=== PATIENT | female | born 1985 | race American Indian/Alaskan Native ===

== ENCOUNTER 2018-09-22 14:59 | Emergency (ER) | payer MEDICAID, OTHER ==
--- NOTE | 2018-09-22 17:41 | Emergency Department Report ---
Blank Doc - Documentation Documentation: 33 y o female presents at 28 weeks for Rhogam injection denies vag bleed, has good fm ED rhogam ordered ACC
[2018-09-22 21:06] VITALS: BP 114/80
--- NOTE | 2018-09-22 21:55 | Emergency Department Report ---
ED General Adult HPI - General Chief complaint: Medical Clearance Stated complaint: RH SHOT Time Seen by Provider: 09/22/18 17:35 Source: patient Mode of arrival: Ambulatory Limitations: No Limitations - History of Present Illness Initial comments: 33 y/o female , 8 weeks presents emergency department for Imogam injection. She reports no pain or vaginal bleeding Severity scale (0 -10): 0 Improves with: none Worsens with: none Associated Symptoms: denies other symptoms Treatments Prior to Arrival: none - Related Data Allergies Allergy/AdvReac Type Severity Reaction Status Date / Time No Known Allergies Allergy Unverified 09/22/18 15:02 ED Review of Systems ROS: Stated complaint: RH SHOT Other details as noted in HPI Constitutional: denies: chills, fever Eyes: denies: eye pain, eye discharge, vision change ENT: denies: ear pain, throat pain Respiratory: denies: cough, shortness of breath, wheezing Cardiovascular: denies: chest pain, palpitations Endocrine: no symptoms reported Gastrointestinal: denies: abdominal pain, nausea, diarrhea Genitourinary: denies: urgency, dysuria, discharge Musculoskeletal: denies: back pain, joint swelling, arthralgia Skin: denies: rash, lesions Neurological: denies: headache, weakness, paresthesias Psychiatric: denies: anxiety, depression Hematological/Lymphatic: denies: easy bleeding, easy bruising ED Past Medical Hx - Past Medical History Previous Medical History?: No - Surgical History Past Surgical History?: No - Social History Smoking Status: Never Smoker Substance Use Type: None ED Physical Exam - General Limitations: No Limitations General appearance: alert, in no apparent distress - Head Head exam: Present: atraumatic - Eye Eye exam: Present: normal appearance - ENT ENT exam: Present: normal exam - Extremities Exam Extremities exam: Present: normal inspection, full ROM - Neurological Exam Neurological exam: Present: alert, oriented X3, normal gait - Psychiatric Psychiatric exam: Present: normal affect, normal mood ED Course Vital Signs 09/22/18 09/22/18 17:36 21:05 Temperature 98.2 F 98.2 F Pulse Rate 108 H 100 H Respiratory 16 16 Rate Blood Pressure 115/81 114/80 O2 Sat by Pulse 99 99 Oximetry Critical care attestation.: If time is entered above; I have spent that time in minutes in the direct care of this critically ill patient, excluding procedure time. ED Disposition Clinical Impression: Need for rhogam due to Rh negative mother Disposition: DC-01 TO HOME OR SELFCARE Is pt being admited?: No Does the pt Need Aspirin: No Condition: Stable Instructions: Rho(D) Immune Globulin (Injection) Referrals: ANNELISE LOPEZ MD [Primary Care Provider] - 3-5 Days
== END 2018-09-22 21:40 | disposition home or self-care (01) ==
LOC: ED 14:59
DX: O26.891 Other specified pregnancy related conditions, first trimester (principal)
CPT/HCPCS: 85461; 86850; 86900; 86901; 96372; 99281; J2790; 36430

== ENCOUNTER 2018-12-02 13:49 | Outpatient (CLI) | payer MEDICAID, OTHER ==
[2018-12-02 14:26] LABS: Hematocrit 41.1 % (30.3-42.9); Hemoglobin 13.7 gm/dl (10.1-14.3); Mean Corpuscular HGB Conc 33 % (30-34); Mean Corpuscular Volume 83 fl (79-97); Platelet Count 232 K/mm3 (140-440); Red Blood Count 4.97 M/mm3 (3.65-5.03); Red Cell Distribution Width 15.1 % (13.2-15.2)
[2018-12-02 14:40] LABS: Bilirubin,Urine NEG (Negative); Blood,Urine SM (Negative); Color,Urine Amber (Yellow); Mucus,Urine 3+ /HPF
[2018-12-02 14:46] LABS: Alanine Aminotransferase 11 units/L (7-56)
--- NOTE | 2018-12-02 15:07 | Ultrasound Report ---
ULTRASOUND OB LIMITED History: Position, TAVON Technique: Transabdominal ultrasound with Doppler interrogation. Gestation: Single Position: Cephalic Amniotic Fluid: Normal TAVON = 11.6 cm Heart Rate: 152 BPM
[2018-12-02 15:17] VITALS: BP 126/75
== END 2018-12-02 15:42 | disposition home or self-care (01) ==
LOC: TRG 13:49
PROVIDERS: ATTEND Obstetrics & Gynecology
DX: O47.1 False labor at or after 37 completed weeks of gestation (principal); O13.3 Gestational [pregnancy-induced] hypertension without significant proteinuria, third trimester; Z3A.38 38 weeks gestation of pregnancy
CPT/HCPCS: 36415; 59025; 76815; 81001; 82565; 83615; 84450; 84460; 84550; 85027

== ENCOUNTER 2018-12-05 14:36 | Outpatient (CLI) | payer MEDICAID, OTHER ==
[2018-12-05 15:26] LABS: Creatinine 24 Hour,Urine 1.5 (0.8-2.8); Creatinine,Urine 93.4 mg/dL (0.1-20.0)
== END 2018-12-05 17:51 | disposition home or self-care (01) ==
LOC: TRG 14:36
PROVIDERS: ATTEND Obstetrics & Gynecology
DX: O47.1 False labor at or after 37 completed weeks of gestation (principal); O13.3 Gestational [pregnancy-induced] hypertension without significant proteinuria, third trimester; Z3A.39 39 weeks gestation of pregnancy
CPT/HCPCS: 82570; 84156

== ENCOUNTER 2018-12-06 02:47 | Inpatient (IN) | payer OTHER, MEDICAID ==
[2018-12-06] MEDS ORDERED: MINERAL OIL PO PRN (03:52)
[2018-12-06] MEDS ORDERED: XYLOCAINE 2% INFILTRATI ONE (03:52)
[2018-12-06] MEDS ORDERED: BRETHINE SUB-Q PRN (03:52)
[2018-12-06] MEDS ORDERED: BRETHINE IVP PRN (03:52)
[2018-12-06] MEDS ORDERED: SUBLIMAZE IV PRN (03:52)
[2018-12-06] MEDS ORDERED: STADOL IV PRN (03:52)
[2018-12-06] MEDS ORDERED: PITOCin/NS 20 UNIT/1000ML DRIP 20 UNITS/1,000 ML BAG IV SCH (04:00)
[2018-12-06] MEDS ORDERED: LACTATED RINGERS 1,000 ML IV SCH (04:00)
[2018-12-06 04:26] LABS: Hematocrit 40.8 % (30.3-42.9); Hemoglobin 13.4 gm/dl (10.1-14.3); Mean Corpuscular HGB Conc 33 % (30-34); Mean Corpuscular Volume 83 fl (79-97); Platelet Count 209 K/mm3 (140-440); Red Blood Count 4.91 M/mm3 (3.65-5.03); Red Cell Distribution Width 15.1 % (13.2-15.2)
--- NOTE | 2018-12-06 06:50 | History and Physical Report ---
History of Present Illness Date of examination: 12/06/18 Date of admission: 12/06/18 06:27 Chief complaint: Leaking fluid, contractions and spotting History of present illness: 33yo G 3 P 1 1 0 2 @ 39 weeks 1 day here with c/o leaking fluid since 2:00am, contractions & spotting. She reports positive movements. SROM confirmed in triage. She is a [facility] patient who initiated care at 10 weeks gestation. Her course was complicated by h/o PTB, enlarged thyroid with subliclinal hyperthyroidism (repeat TSH/T4 normal), previous baby with spina bifida, +trich(was treated; neg STEVENSON), h/o depression, vit D deficiency (was supplemented) and +antibody screen Anti D (s/p RhoGam injection). Her care was co-managed with [facility]. LABS: O neg, Antibody Screen pos, Pap smear normal, RI, VDRL NR, HBsAg neg, HIV neg , MSAFP neg, Diabetes Screen 134, CT/NG/Trich neg, GBS neg. Past History Past Medical History: other (vitamin deficiency) Past Surgical History: no surgical history [employer] History: trichomonas (neg STEVENSON) Family/Genetic History: hypertension Social history: single, lives with family, full code. denies: smoking, alcohol abuse, prescription drug abuse, IV drug use - Obstetrical History Expected Date of Delivery: 12/12/18 Actual Gestation: 39 Week(s) 1 Day(s) : 3 Para: 2 Hx # Term Pregnancies: 1 Number of Pregnancies: 1 Spontaneous Abortions: 0 Induced : 0 Number of Living Children: 2 #1 Infant Gender: Male year: 2,007 (11/25/2006) Birthweight: 2.722 kg (6 lbs) Method of Delivery: Vaginal Gestational age at delivery: 36 Complications: none #2 Gender: Male year: 2,009 (10/27/2008) Birthweight: 3.118 kg Method of Delivery: Vaginal Gestational age at delivery: 37 Complications: none Medications and Allergies Allergies Allergy/AdvReac Type Severity Reaction Status Date / Time No Known Allergies Allergy Verified 12/06/18 03:32 Active Meds: Active Medications Butorphanol Tartrate (Stadol) 2 mg IV Q2H PRN PRN Reason: Pain , Severe (7-10) Ephedrine Sulfate (Ephedrine Sulfate) 10 mg IV Q2M PRN PRN Reason: Hypotension Fentanyl (Sublimaze) 100 mcg IV Q2H PRN PRN Reason: Labor Pain Oxytocin/Sodium Chloride (Pitocin/Ns 20 Unit/1000ml Drip) 20 units in 1,000 mls @ 125 mls/hr IV DIRECT ERICA Oxytocin/Sodium Chloride (Pitocin/Ns 30 Unit/500ml) 30 units in 500 mls @ 2 mls/hr IV TITR ERICA; Protocol Lactated Ringer's (Lactated Ringers) 1,000 mls @ 125 mls/hr IV DIRECT ERICA Mineral Oil (Mineral Oil) 30 ml PO QHS PRN PRN Reason: Constipation Terbutaline Sulfate (Brethine) 0.25 mg SUB-Q ONCE PRN PRN Reason: Hyperstimulation/Hypertonicity Terbutaline Sulfate (Brethine) 0.25 mg IVP ONCE PRN PRN Reason: Hyperstimulation/Hypertonicity Review of Systems All systems: negative - Vital Signs Vital signs: Vital Signs Pulse BP 125 H 126/88 12/06/18 03:00 12/06/18 03:00 Temp Pulse Resp BP Pulse Ox 98.4 F 88 18 130/91 86 12/06/18 03:19 12/06/18 06:43 12/06/18 03:19 12/06/18 06:43 12/06/18 06:13 - Obstetrical FHR: auscultation normal, category 1 Uterine Contraction Monitor Mode: Palpation Cervical Dilatation: 3.5 (per RN) Cervical Effacement Percentage: 70 (per RN) station: -2 (per RN) Uterine Contraction Pattern: Irregular Results Result Diagrams: 12/06/18 03:44 Abnormal lab results 12/06/18 Range/Units 03:44 WBC 12.3 H (4.5-11.0) K/mm3 MCH 27 L (28-32) pg All other labs normal. Assessment and Plan - Patient Problems (1) 39 weeks gestation of Current Visit: Yes Status: Acute (2) Spontaneous rupture of amniotic membranes Current Visit: Yes Status: Acute (3) Active labor at term Current Visit: Yes Status: Acute Plan to address problem: Admit to L&D with routine labor orders Oxytocin for labor augmentation Anticipate vaginal delivery
[2018-12-06] MEDS ORDERED: PITOCin/NS 30 UNIT/500ML 30 UNITS/500 ML BAG IV SCH (07:00)
--- NOTE | 2018-12-06 09:16 | Progress Note ---
Assessment and Plan - Patient Problems (1) 39 weeks gestation of Current Visit: Yes Status: Acute Plan to address problem: Continue routine labor orders Continue Pitocin augmentation as tolerated Pain medication as desired Anticipate (2) Spontaneous rupture of amniotic membranes Current Visit: Yes Status: Acute Subjective - Subjective Date of service: 12/06/18 (904) Principal diagnosis: SROM Interval history: See admission H & P and OB progress notes Patient reports: loss of fluid, movement normal, contractions, other (States she's ok, tolerating pain well), no vaginal bleeding Objective - Vital Signs Vital Signs: Vital Signs - 12hr 12/06/18 12/06/18 12/06/18 03:00 03:19 03:31 Temperature 98.4 F Pulse Rate 125 H 93 H 93 H Respiratory 18 Rate Blood Pressure 126/88 131/82 Blood Pressure 131/82 [Left] O2 Sat by Pulse Oximetry 12/06/18 12/06/18 12/06/18 03:33 03:38 03:43 Temperature Pulse Rate 87 104 H 92 H Respiratory Rate Blood Pressure Blood Pressure [Left] O2 Sat by Pulse 98 98 97 Oximetry 12/06/18 12/06/18 12/06/18 03:48 03:53 03:58 Temperature Pulse Rate 94 H 98 H 93 H Respiratory Rate Blood Pressure Blood Pressure [Left] O2 Sat by Pulse 97 97 97 Oximetry 12/06/18 12/06/18 12/06/18 04:01 04:03 04:08 Temperature Pulse Rate 88 96 H 99 H Respiratory Rate Blood Pressure 132/90 Blood Pressure [Left] O2 Sat by Pulse 96 98 Oximetry 12/06/18 12/06/18 12/06/18 04:13 04:18 04:23 Temperature Pulse Rate 105 H 125 H 123 H Respiratory Rate Blood Pressure Blood Pressure [Left] O2 Sat by Pulse 98 98 98 Oximetry 12/06/18 12/06/18 12/06/18 04:28 04:31 04:33 Temperature Pulse Rate 98 H 100 H 121 H Respiratory Rate Blood Pressure 137/89 Blood Pressure [Left] O2 Sat by Pulse 97 97 Oximetry 12/06/18 12/06/18 12/06/18 04:38 04:43 04:48 Temperature Pulse Rate 95 H 94 H 101 H Respiratory Rate Blood Pressure Blood Pressure [Left] O2 Sat by Pulse 98 98 97 Oximetry 12/06/18 12/06/18 12/06/18 04:53 04:58 05:01 Temperature Pulse Rate 96 H 97 H 96 H Respiratory Rate Blood Pressure 137/89 Blood Pressure [Left] O2 Sat by Pulse 98 98 Oximetry 12/06/18 12/06/18 12/06/18 05:03 05:08 05:13 Temperature Pulse Rate 98 H 99 H 96 H Respiratory Rate Blood Pressure Blood Pressure [Left] O2 Sat by Pulse 98 98 100 Oximetry 12/06/18 12/06/18 12/06/18 05:15 05:18 05:23 Temperature Pulse Rate 97 H 92 H 104 H Respiratory Rate Blood Pressure Blood Pressure [Left] O2 Sat by Pulse 93 98 100 Oximetry 12/06/18 12/06/18 12/06/18 05:28 05:31 05:32 Temperature Pulse Rate 93 H 91 H 102 H Respiratory Rate Blood Pressure 142/92 Blood Pressure [Left] O2 Sat by Pulse 99 93 Oximetry 12/06/18 12/06/18 12/06/18 05:33 05:38 05:43 Temperature Pulse Rate 98 H 93 H 97 H Respiratory Rate Blood Pressure Blood Pressure [Left] O2 Sat by Pulse 97 100 99 Oximetry 12/06/18 12/06/18 12/06/18 05:48 05:53 05:58 Temperature Pulse Rate 98 H 107 H 96 H Respiratory Rate Blood Pressure Blood Pressure [Left] O2 Sat by Pulse 98 97 100 Oximetry 12/06/18 12/06/18 12/06/18 06:01 06:03 06:08 Temperature Pulse Rate 95 H 94 H 99 H Respiratory Rate Blood Pressure 134/91 Blood Pressure [Left] O2 Sat by Pulse 100 100 Oximetry 12/06/18 12/06/18 12/06/18 06:09 06:13 06:43 Temperature Pulse Rate 96 H 104 H 88 Respiratory Rate Blood Pressure 130/91 Blood Pressure [Left] O2 Sat by Pulse 91 86 Oximetry 12/06/18 12/06/18 12/06/18 07:31 07:59 08:00 Temperature 97.5 F L Pulse Rate 93 H 103 H Respiratory 12 Rate Blood Pressure 130/81 135/85 Blood Pressure [Left] O2 Sat by Pulse Oximetry 12/06/18 12/06/18 08:29 09:00 Temperature Pulse Rate 110 H 99 H Respiratory Rate Blood Pressure 112/77 125/87 Blood Pressure [Left] O2 Sat by Pulse Oximetry - Exam Breasts: deferred Cardiovascular: Regular rate Lungs: Normal air movement Abdomen: Present: other (gravid) Uterus: Present: other (S=D) FHR: category 1, other (Pitocin @ 6 mu/min) Uterine Contraction Monitor Mode: External Uterine Contraction Frequency (min): 3 Uterine Contraction Pattern: Irregular Uterine Tone Measurement Phase: Resting Uterine Contraction Intensity: Moderate Extremities: normal Deep Tendon Reflex Grade: Normal +2 - Labs Labs: Abnormal Labs 12/06/18 03:44 WBC 12.3 H MCH 27 L Laboratory Results - last 24 hr 12/06/18 12/06/18 03:44 03:44 WBC 12.3 H RBC 4.91 Hgb 13.4 Hct 40.8 MCV 83 MCH 27 L MCHC 33 RDW 15.1 Plt Count 209 Blood Type O NEGATIVE Antibody Screen Negative
[2018-12-06] MEDS ORDERED: ZOFRAN ONE (10:03)
[2018-12-06] MEDS ORDERED: BENADRYL PO PRN (10:44)
[2018-12-06] MEDS ORDERED: DULCOLAX PR PRN (10:44)
[2018-12-06] MEDS ORDERED: TUCKS PAD TP PRN (10:44)
[2018-12-06] MEDS ORDERED: PERCOCET 5/325 PO PRN (10:44)
[2018-12-06] MEDS ORDERED: MILK OF MAGNESIA PO PRN (10:44)
[2018-12-06] MEDS ORDERED: PHENERGAN PO PRN (10:44)
[2018-12-06] MEDS ORDERED: LANSINOH TP PRN (10:44)
[2018-12-06] MEDS ORDERED: ZOFRAN IV PRN (10:44)
[2018-12-06] MEDS ORDERED: PHENERGAN PR PRN (10:44)
--- NOTE | 2018-12-06 10:56 | Procedure Note ---
OB Delivery Note - Delivery Date of Delivery: 12/06/18 (1013) Surgeon: RANDI BELL (CNM) Estimated blood loss: 200cc - Vaginal Delivery presentation: vertex Delivery position: OA (JAZMÍN) Intrapartum events: none Delivery induction: none Delivery augmentation: pitocin Delivery monitor: external FHT, external uterine Route of delivery: Delivery placenta: spontaneous (1031) Delivery cord: nuchal cord (x 1) Episiotomy: none Delivery laceration: none Anesthesia: none Delivery comments: of viable female infant, placed directly to maternal abdomen, cried after drying and stimulation for a few minuets then stopped. Remains alert, but quiet, some breathing retractions noted. NICU called to come to assess. Cord double clamped and cut after cessation of pulsation. NICU arrived to room, infant handed over to team. Placenta spontaneously delivered, alberts, disposed per hospital policy. Uterus firm @ U, hemostasis maintained. Perineum intact. Baby placed back [id number] with mother after cleared by NICU team. Mother and baby safe, stable and bonding well. - Infant A at 1 minute: 8 at 5 minutes: 8 Gender: Female (Weight: 7lbs 1 oz (3197 gms), 18.25 inches)
[2018-12-06] MEDS ORDERED: SODIUM CHLORIDE FLUSH SYRINGE 10 ML IV NR (11:00)
[2018-12-06] MEDS: IBUPROFEN PO SCH ×3 (11:06→22:40)
[2018-12-06 23:43] LABS: Hematocrit 37.4 % (30.3-42.9); Hemoglobin 12.2 gm/dl (10.1-14.3)
[2018-12-07] MEDS: IBUPROFEN PO SCH ×2 (05:57→11:54)
[2018-12-07] MEDS ORDERED: PRENATAL VITAMIN PO SCH (10:00)
--- NOTE | 2018-12-07 11:32 | Progress Note ---
Assessment and Plan A: PP Day #1 Stable P: Follow Routine Orders D/C home today per patient request RTO in 6 Weeks Subjective - Subjective Date of service: 12/07/18 Principal diagnosis: SROM Patient reports: appetite normal, voiding normally, pain well controlled, flatus, ambulating normally : doing well, bottle feeding Objective - Vital Signs Latest vital signs: Vital Signs Temp Pulse Resp BP Pulse Ox 12/07/18 00:03 97.8 F 81 16 110/76 98 12/06/18 19:52 98.0 F 78 18 128/86 99 12/06/18 18:45 18 12/06/18 15:51 97.6 F 87 20 114/84 99 12/06/18 12:33 97.3 F L 94 H 20 131/81 99 12/06/18 12:04 97.3 F L Intake and Output 12/06/18 12/07/18 12/07/18 22:59 06:59 14:59 Intake Total 240 Output Total 300 Balance -60 Intake: Oral 240 Output: Urine 300 Void 300 Other: Total, Intake Amount 240 Total, Output Amount 300 - Exam Breasts: Present: normal Cardiovascular: Present: Regular rate Lungs: Present: Clear to auscultation, Normal air movement Abdomen: Present: normal appearance, soft, normal bowel sounds Uterus: Present: normal, firm, fundal height below umbilicus Extremities: Present: normal
--- NOTE | 2018-12-07 11:33 | Discharge Summary ---
Providers - Providers Date of Admission: 12/06/18 06:27 Date of discharge: 12/07/18 Attending physician: SAMIRA ISSA MD Primary care physician: SAMIRA ISSA MD Hospitalization Reason for admission: rupture of membranes Delivery: Episiotomy: none Laceration: none Other procedures: none complications: none Discharge diagnosis: IUP at term delivered [place] baby: female Condition at discharge: Good Disposition: DC-01 TO HOME OR SELFCARE Plan - Provider Discharge Summary Activity: routine, no sex for 6 weeks, no heavy lifting 4 weeks, no strenuous exercise Diet: routine Instructions: routine Additional instructions: [] Smoking cessation referral if applicable(refer to patient education folder for contact #) [] Refer to [facility] Booklet Call your doctor immediately for: * Fever > 100.5 * Heavy vaginal bleeding ( >1 pad per hour) * Severe persistent headache * Shortness of breath * Reddened, hot, painful area to leg or breast * Drainage or odor from incision. * Keep incision clean and dry at all times and follow doctor's instructions regarding bathing/showering - Follow up plan Follow up: SAMIRA ISSA MD [Primary Care Provider] - 6 Weeks
[2018-12-07 18:07] VITALS: BP 118/80
== END 2018-12-07 19:00 | disposition home or self-care (01) | DRG 775 ==
LOC: TRG 02:47 → LD 06:27 → OB 13:42
PROVIDERS: ADMIT Obstetrics & Gynecology; ATTEND Obstetrics & Gynecology
PROC: 10E0XZZ Delivery of Products of Conception, External Approach (ICD-10-PCS; principal; 2018-12-06)
PROC: 3E0334Z Introduction of Serum, Toxoid and Vaccine into Peripheral Vein, Percutaneous Approach (ICD-10-PCS; 2018-12-07)
DX: O69.81X0 Labor and delivery complicated by cord around neck, without compression, not applicable or unspecified (principal); O26.893 Other specified pregnancy related conditions, third trimester; Z3A.39 39 weeks gestation of pregnancy; Z37.0 Single live birth; Z82.49 Family history of ischemic heart disease and other diseases of the circulatory system; Z67.41 Type O blood, Rh negative; F32.9 Major depressive disorder, single episode, unspecified; O99.344 Other mental disorders complicating childbirth
CPT/HCPCS: 36415; 82570; 84156; 85014; 85018; 85027; 85461; 86592; 86850; 86900; 86901; G0378; J0595; J2405; J2590; J2790; J7120

== ENCOUNTER 2020-08-16 09:23 | Outpatient (CLI) | payer MEDICAID | END 2020-08-16 13:14 | disposition home or self-care (01) | LOC: LAB 09:23 → APU 12:50 → LAB 13:14 | PROVIDERS: ATTEND Obstetrics & Gynecology | DX: O26.893 Other specified pregnancy related conditions, third trimester (principal); O09.523 Supervision of elderly multigravida, third trimester; Z3A.28 28 weeks gestation of pregnancy; Z67.41 Type O blood, Rh negative | CPT/HCPCS: 86850; 86900; 86901; 96372; J2790 ==

== ENCOUNTER 2020-10-28 12:48 | Outpatient (CLI) | payer MEDICAID ==
[2020-10-28 13:45] LABS: Hemoglobin 13.9 gm/dl (10.1-14.3); Mean Corpuscular HGB Conc 33 % (30-34); Mean Corpuscular Volume 83 fl (79-97); Platelet Count 220 K/mm3 (140-440); Red Blood Count 5.07 M/mm3 (3.65-5.03); Red Cell Distribution Width 15.8 % (13.2-15.2)
[2020-10-28 14:14] LABS: Alanine Aminotransferase 10 units/L (7-56); Uric Acid 3.4 mg/dL (3.5-7.6)
[2020-10-28 14:17] LABS: Bacteria,Urine 1+ /HPF (Negative); Bilirubin,Urine NEG (Negative); Blood,Urine SM (Negative); Color,Urine Yellow (Yellow); Mucus,Urine FEW /HPF; Protein,Urine <15 mg/dL mg/dL (Negative)
[2020-10-28 15:26] VITALS: BP 134/84
--- NOTE | 2020-10-28 17:22 | Ultrasound Report ---
ULTRASOUND OBSTETRIC LIMITED ULTRASOUND BIOPHYSICAL PROFILE INDICATION / CLINICAL INFORMATION: well being. Clinical Gestational Age (GA): 37.1 weeks.days COMPARISON: None available. FINDINGS: BREATHING MOVEMENT = 2 GROSS BODY MOVEMENT = 2 TONE = 2 QUALITATIVE AMNIOTIC FLUID VOLUME = 2 TOTAL BIOPHYSICAL SCORE = 8/8 HEART RATE (beats per minute): 143 AMNIOTIC FLUID INDEX (cm) = 12.5 (normal = 7-24 cm) PRESENTATION: Cephalic. ADDITIONAL FINDINGS: None. IMPRESSION: 1. Biophysical Score = 8/8 2. No significant sonographic abnormality. Signer Name: Andrea Silva MD Signed: 10/28/2020 5:17 PM Workstation Name: [id number]
== END 2020-10-28 16:02 | disposition home or self-care (01) ==
LOC: TRG 12:48 → APU 12:49 → TRG 16:02
DX: Z34.93 Encounter for supervision of normal pregnancy, unspecified, third trimester (principal); Z3A.39 39 weeks gestation of pregnancy
CPT/HCPCS: 36415; 59025; 76815; 76819; 81001; 82565; 83615; 84450; 84460; 84550; 85027

== ENCOUNTER 2020-11-03 00:32 | Inpatient (IN) | payer MEDICAID ==
[2020-11-03] MEDS ORDERED: MINERAL OIL 30 ML ORAL LIQD PO PRN (01:27)
[2020-11-03] MEDS ORDERED: fentaNYL 100 MCG/2 ML INJ IV PRN (01:27)
[2020-11-03] MEDS ORDERED: ePHEDrine SULFATE 50 MG/1 ML INJ IV PRN (01:27)
[2020-11-03] MEDS ORDERED: LIDOCAINE (2%) 20 MG/1 ML VIAL 20 ML MDV INFILTRATI ONE (01:27)
[2020-11-03] MEDS ORDERED: TERBUTALINE 1 MG/1 ML INJ SUB-Q PRN (01:27)
[2020-11-03] MEDS ORDERED: ONDANSETRON 4 MG/2 ML INJ IV PRN ×2 (01:27→04:07)
[2020-11-03] MEDS ORDERED: LACTATED RINGERS 1,000 ML IV SCH (01:30)
[2020-11-03] MEDS ORDERED: OXYTOCIN DRIP 30 UNITS/500 ML BAG IV SCH ×2 (02:00→05:00)
[2020-11-03] MEDS ORDERED: OXYTOCIN 10 UNIT/1 ML INJ ONE (03:15)
[2020-11-03 03:17] LABS: Bacteria,Urine 1+ /HPF (Negative); Bilirubin,Urine NEG (Negative); Blood,Urine LG (Negative); Color,Urine Yellow (Yellow); Mucus,Urine 1+ /HPF
[2020-11-03] MEDS ORDERED: BUTORPHANOL 2 MG/1 ML INJ IV ONE (03:59)
[2020-11-03] MEDS ORDERED: BUTORPHANOL 2 MG/1 ML INJ ONE (04:02)
--- NOTE | 2020-11-03 04:02 | History and Physical Report ---
History of Present Illness Date of examination: 11/03/20 Date of admission: 11/03/20 03:09 Chief complaint: active labor History of present illness: PNC at [facility] OB Problem list: alpha thal carrier AMA hx of PTD Hx of child with Spina Bifeda Rh neg Past History Past Medical History: hypertension (hx of PIH) Past Surgical History: no surgical history Social history: no significant social history - Obstetrical History Expected Date of Delivery: 11/02/20 Actual Gestation: 40 Week(s) 1 Day(s) : 4 Para: 3 Medications and Allergies Allergies Allergy/AdvReac Type Severity Reaction Status Date / Time No Known Allergies Allergy Verified 12/06/18 03:32 Active Meds: Active Medications Ephedrine Sulfate (Ephedrine Sulfate 50 Mg/1 Ml Inj) 10 mg IV Q2M PRN PRN Reason: Hypotension Fentanyl (Fentanyl 100 Mcg/2 Ml Inj) 100 mcg IV Q2H PRN PRN Reason: Pain,Severe (7-10) LABOR PAIN Lactated Ringer's (Lactated Ringers) 1,000 mls @ 125 mls/hr IV DIRECT ERICA Oxytocin/Sodium Chloride (Pitocin/Ns 30 Unit/500ml) 30 units in 500 mls @ 40 mls/hr IV TITR ERICA; Protocol Mineral Oil (Mineral Oil 30 Ml Oral Liqd) 30 ml PO QHS PRN PRN Reason: Constipation Ondansetron HCl (Ondansetron 4 Mg/2 Ml Inj) 4 mg IV Q8H PRN PRN Reason: Nausea And Vomiting Terbutaline Sulfate (Terbutaline 1 Mg/1 Ml Inj) 0.25 mg SUB-Q ONCE PRN PRN Reason: Hyperstimulation/Hypertonicity - Vital Signs Vital signs: Vital Signs Pulse BP 86 139/92 11/03/20 00:52 11/03/20 00:52 Temp Pulse Resp BP Pulse Ox 98.9 F 57 L 18 131/79 81 L 11/03/20 00:53 11/03/20 03:51 11/03/20 00:53 11/03/20 03:43 11/03/20 03:51 - Physical Exam Breasts: Positive: deferred Cardiovascular: Regular rate Lungs: Positive: Clear to auscultation Abdomen: Positive: normal appearance, normal bowel sounds Vagina: Positive: normal moisture Uterus: Positive: enlarged (FH 40cm) Anus/Rectum: Positive: normal perianal skin Deep Tendon Reflex Grade: Normal +2 - Obstetrical FHR: category 1 Cervical Dilatation: 60 station: -3 Uterine Contraction Pattern: Regular Uterine Contraction Intensity: Moderate Results Abnormal lab results 11/03/20 Range/Units 02:36 Urine WBC (Auto) 125.0 H (0.0-6.0) /HPF All other labs normal. Assessment and Plan admission CFM pain meds prn gbs coverage if needed maternal/feal status reassuring Bhavesh Lauren MD
[2020-11-03 04:03] LABS: Hematocrit 39.9 % (30.3-42.9); Hemoglobin 13.2 gm/dl (10.1-14.3); Mean Corpuscular HGB Conc 33 % (30-34); Mean Corpuscular Volume 84 fl (79-97); Platelet Count 188 K/mm3 (140-440); Red Blood Count 4.77 M/mm3 (3.65-5.03); Red Cell Distribution Width 15.6 % (13.2-15.2)
--- NOTE | 2020-11-03 04:06 | Procedure Note ---
OB Delivery Note - Delivery Date of Delivery: 11/03/20 Surgeon: MACY CRAIG Estimated blood loss: 300cc - Vaginal Delivery position: OA Intrapartum events: precipitous labor- <3hr Delivery induction: none Delivery monitor: none Route of delivery: Delivery placenta: spontaneous Delivery cord: 3 umbilical vessels Episiotomy: none Delivery comments: I was called at 03:11 after the delivery of a viable male over an intact perineum. Uncomplicated special delivery worker with double tight nuchal reduced after delivery of the anterior shoulder. Placenta intact delivered at.... Cord gases obtained. Inspection of the perineum, vaginal and cervix revealed no lacerations. All sponge,needle and instrument counts corectx2 Mom and baby stable to . Frm fundus, EBL 300ml Bhavesh Craig MD
[2020-11-03] MEDS ORDERED: WITCH HAZEL/ GLYCERIN PAD TP PRN (04:07)
[2020-11-03] MEDS ORDERED: LANOLIN/ZINC/DIMETHICONE (LANSINOH) 7 GM TP PRN (04:07)
[2020-11-03] MEDS ORDERED: KETOROLAC 30 MG/1 ML INJ IV PRN (04:07)
[2020-11-03] MEDS ORDERED: PROMETHAZINE 25 MG TAB PO PRN (04:07)
[2020-11-03] MEDS ORDERED: PROMETHAZINE 25 MG RECT SUPP PR PRN (04:07)
[2020-11-03] MEDS ORDERED: MAGNESIUM HYDROXIDE (MOM) ORAL LIQD UDC PO PRN (04:07)
[2020-11-03] MEDS ORDERED: ACETAMINOPHEN 325 MG TAB PO PRN (04:07)
[2020-11-03] MEDS ORDERED: diphenhydrAMINE 25 MG CAP PO PRN (04:07)
[2020-11-03] MEDS ORDERED: oxyCODONE /ACETAMINOPHEN 5-325MG TAB PO PRN (04:07)
[2020-11-03 06:06] LABS: Alanine Aminotransferase 11 units/L (7-56); Uric Acid 3.4 mg/dL (3.5-7.6)
[2020-11-03] MEDS: IBUPROFEN 600 MG TAB PO SCH ×2 (12:13→18:23)
[2020-11-03 17:38] LABS: Hematocrit 36.5 % (30.3-42.9); Hemoglobin 12.2 gm/dl (10.1-14.3)
[2020-11-03] MEDS: HYDROcodone/ACETAMINOPHEN 5-325 MG TAB PO PRN (19:25)
[2020-11-04] MEDS: IBUPROFEN 600 MG TAB PO SCH (05:17)
[2020-11-04] MEDS: HYDROcodone/ACETAMINOPHEN 5-325 MG TAB PO PRN (08:48)
[2020-11-04] MEDS ORDERED: medroxyPROGESTERone ACETATE 150 MG/ML SYRINGE IM NR (11:01)
--- NOTE | 2020-11-04 11:04 | Progress Note ---
Assessment and Plan A: PP Day #1 Stable P: Follow Routine Orders Depo Provera 150mg IM x 1 dose prior to discharge D/C Home today per patient request Plans Sterilization RTO in 3 Weeks Subjective - Subjective Date of service: 11/04/20 Patient reports: appetite normal, voiding normally, pain well controlled, flatus, ambulating normally [place]: doing well, bottle feeding Objective - Vital Signs Latest vital signs: Vital Signs Temp Pulse Resp BP BP Pulse Ox 11/04/20 08:50 97.7 F 92 H 18 121/84 99 11/04/20 00:00 98 F 69 18 114/79 11/03/20 20:00 98.7 F 81 18 123/78 11/03/20 16:20 97.8 F 89 18 138/89 96 Intake and Output 11/03/20 11/04/20 11/04/20 22:59 06:59 14:59 Intake Total 300 0 Balance 300 0 Intake: Intake, Free Water 300 Blood Product 0 Rhogam Unit [id number] Other: # Voids Void 1 - Exam Breasts: Present: normal Cardiovascular: Present: Regular rate Lungs: Present: Clear to auscultation, Normal air movement Abdomen: Present: normal appearance, soft, normal bowel sounds Uterus: Present: normal, firm, fundal height below umbilicus Extremities: Present: normal
--- NOTE | 2020-11-04 11:06 | Discharge Summary ---
Providers - Providers Date of Admission: 11/03/20 03:09 Date of discharge: 11/04/20 Attending physician: MACY CRAIG MD Primary care physician: MACY CRAIG MD Hospitalization Reason for admission: active labor Delivery: Episiotomy: none Laceration: none Other procedures: none complications: none Discharge diagnosis: IUP at term delivered baby: male Condition at discharge: Good Disposition: DC-01 TO HOME OR SELFCARE Plan - Provider Discharge Summary Activity: routine, no sex for 6 weeks, no heavy lifting 4 weeks, no strenuous exercise Diet: routine Instructions: routine Additional instructions: [] Smoking cessation referral if applicable(refer to patient education folder for contact #) [] Refer to [facility] Booklet Call your doctor immediately for: * Fever > 100.5 * Heavy vaginal bleeding ( >1 pad per hour) * Severe persistent headache * Shortness of breath * Reddened, hot, painful area to leg or breast * Drainage or odor from incision. * Keep incision clean and dry at all times and follow doctor's instructions regarding bathing/showering - Follow up plan Follow up: MACY CRAIG MD [Primary Care Provider] - 11/25/20
[2020-11-04 13:00] VITALS: BP 124/86
== END 2020-11-04 13:30 | disposition home or self-care (01) | DRG 774 ==
LOC: TRG 00:32 → APU 00:43 → LD 02:28 → TRG 03:09 → LD 03:09 → OB 06:25
PROVIDERS: ADMIT Obstetrics & Gynecology; ATTEND Obstetrics & Gynecology
PROC: 10E0XZZ Delivery of Products of Conception, External Approach (ICD-10-PCS; principal; 2020-11-03)
DX: O62.3 Precipitate labor (principal); O10.92 Unspecified pre-existing hypertension complicating childbirth; Z3A.40 40 weeks gestation of pregnancy; Z37.0 Single live birth; Z20.822 Contact with and (suspected) exposure to COVID-19; D56.3 Thalassemia minor; O99.12 Other diseases of the blood and blood-forming organs and certain disorders involving the immune mechanism complicating childbirth
CPT/HCPCS: 36415; 59025; 81001; 82565; 83615; 84450; 84460; 84550; 85014; 85018; 85027; 85461; 86592; 86850; 86900; 86901; 96365; 96372; G0378; J0595; J1050; J2405; J2590; J2790; U0003

== ENCOUNTER 2021-01-09 05:47 | Day surgery (SDC) | payer MEDICAID ==
[2021-01-09] MEDS ORDERED: LACTATED RINGERS 1,000 ML ONE (07:12)
[2021-01-09] MEDS ORDERED: fentaNYL 100 MCG/2 ML INJ ONE (07:13)
[2021-01-09] MEDS ORDERED: LIDOCAINE MPF (2%) 20 MG/1 ML VIAL 5 ML ONE (07:13)
[2021-01-09] MEDS ORDERED: ROCURONIUM 50 MG/5 ML INJ IV ONE (07:13)
[2021-01-09] MEDS ORDERED: BUPIVACAINE/PF (0.5%) 5 MG/1 ML 30 ML VIAL INFILTRATI ONE ×3 (07:14→08:35)
[2021-01-09] MEDS ORDERED: propofoL 200 MG/20 ML VIAL IV ONE (07:14)
[2021-01-09 07:18] LABS: Hematocrit 40.3 % (30.3-42.9); Hemoglobin 13.5 gm/dl (10.1-14.3); Mean Corpuscular HGB Conc 34 % (30-34); Mean Corpuscular Volume 84 fl (79-97); Platelet Count 246 K/mm3 (140-440); Red Blood Count 4.78 M/mm3 (3.65-5.03); Red Cell Distribution Width 14.3 % (13.2-15.2)
--- NOTE | 2021-01-09 07:20 | Anesthesia Day of Surgery ---
Anesthesia Day of Surgery - Day of Surgery Patient Examined: Yes Patient H&P Reviewed: Yes Patient is NPO: Yes
--- NOTE | 2021-01-09 07:23 | Anesthesia Consultation ---
Anesthesia Consult and Med Hx Date of service: 01/09/21 - Airway Anesthetic Teeth Evaluation: Chipped (qa!) - Pre-Operative Health Status Proposed Anesthetic Plan: General - Pulmonary Hx Smoking: No Hx Asthma: No COPD: No Hx Pneumonia: No Hx Sleep Apnea: No (JAIRO PRE SCREEN LOW RISK) - Cardiovascular System Hx Hypertension: Yes ("WATCHING"- NO MEDS) - Central Nervous System Hx Seizures: No Hx Psychiatric Problems: Yes (depression/anxiety) - Endocrine Hx Renal Disease: No Hx End Stage Renal Disease: No Hx Hypothyroidism: No Hx Hyperthyroidism: Yes (thyroid levels normal) - Hematic Hx Anemia: Yes ( TEEN / NOT RECENT) Hx Sickle Cell Disease: No (SC TRAIT ONLY) - Other Systems Hx Alcohol Use: No Hx Cancer: No
[2021-01-09] MEDS ORDERED: dexAMETHasone 20 MG/5 ML VIAL ONE (07:24)
[2021-01-09] MEDS ORDERED: MIDAZOLAM 2 MG/2 ML INJ IV NR (08:00)
[2021-01-09] MEDS ORDERED: LACTATED RINGERS 1,000 ML IV SCH (08:00)
[2021-01-09] MEDS ORDERED: MAGNESIUM OXIDE 400 MG TAB PO SCH (08:00)
[2021-01-09] MEDS ORDERED: ONDANSETRON 4 MG/2 ML INJ IV PRN (08:00)
[2021-01-09] MEDS ORDERED: CELECOXIB 200 MG CAP PO NR (08:00)
[2021-01-09] MEDS ORDERED: HYDROmorphone 1 MG/1 ML INJ IV PRN (08:00)
[2021-01-09] MEDS ORDERED: ACETAMINOPHEN 500 MG TAB PO SCH (08:00)
[2021-01-09] MEDS ORDERED: ceFAZolin/Water 2 GM/20 ML 2 GM/20 ML SYRINGE IV ONE (08:03)
[2021-01-09] MEDS ORDERED: HYDROmorphone 1 MG/1 ML INJ ONE (08:08)
[2021-01-09] MEDS ORDERED: NEOSTIGMINE 10MG/10 ML INJ MDV ONE (08:12)
[2021-01-09] MEDS ORDERED: GLYCOPYRROLATE 0.4 MG/2 ML INJ ONE (08:12)
[2021-01-09] MEDS ORDERED: SODIUM CHLORIDE 0.9% IRR 1,000 ML BOTTLE IR ONE (08:36)
[2021-01-09] MEDS ORDERED: KETOROLAC 30 MG/1 ML INJ ONE (09:00)
[2021-01-09] MEDS: HYDROmorphone 1 MG/1 ML INJ IV PRN ×4 (09:50→10:30)
--- NOTE | 2021-01-09 09:50 | Procedure Note ---
Date of procedure: 01/09/21 Pre-op diagnosis: multiparous, desires permanent sterilization Post-op diagnosis: same Procedure: After the risks, benefits and alternatives of contraception were discussed, patient signed consents for permanent sterilization via minilaparotomy and was taken to the OR via stretcher. Pt was given preop antibiotics and general anesthesia per protocol and after same was adequate, time out done, pt prepped, barry cath placed and pt draped in usual sterile manner. Suprapubic transverse incision done approximately 4cm and taken sharply to the fascia thru the thick subcutaneous tissue. The fascia was incised and extended bilaterally to 5cm total length. Superior portion of the fascia from rectus muscle using electrocautery and the muscles in the midline manually and peritoneum entered bluntly with good visualization of the bladder. Pt placed in Trendelenburg position and the left tube identified using moni and followed out to it's fimbriated end. The avascular portion of the mesosalpinx was entered with the bovie and the distal tubal segment with fimbriae excised and the free ends remaining doubly ligated with 0-vicryl suture. Attention was then turned to the right fallopian tube which was very deep in the pelvis posteriorly, and in a similar manner using the moni tube followed to it's fimbriated end and the distal tubal segment with fimbriae was transected and doubly suture ligated at both free ends. Instruments and sponge x1 placed intraabdominally was removed without difficulty. Peritoneum closed in a continuous fashion using 3-0 vicryl and then the muscles reapproximated with interrupted sutures x2. Fascia closed in a continuous fashion using 0-vicryl and subcutaneous tissue irrigated with normal saline and reapproximated in 2 layers using 3-0 vicryl. The skin was closed with 4-0 monocryl subcutaneously. Excellent hemostasis remained. Pt given marcaine local anesthesia. Steristrips and gauze dressing placed on top with occlusive dressing. Sponge, lap and intrument counts x2 were correct Pt extubated and taken to recovery room stable. INTAKE: 1100cc OUTPUT: 200cc clear urine and barry removed in the OR EBL: less than 5cc. Complications: none Findings: Normal size uterus deep in the pelvis with bilateral ovaries with small clear cysts, normal tubes bilaterally, slightly thinner and tortuous on left side. Implants: none Anesthesia: GETA Surgeon: CHRISTINA BANUELOS Estimated blood loss: minimal (less than 5cc) Pathology: list (right and left distal tubal segments with fimbriae attached) Specimen disposition: to lab Condition: stable Disposition: PACU
[2021-01-09] MEDS ORDERED: oxyCODONE /ACETAMINOPHEN 5-325MG TAB ONE (10:16)
[2021-01-09] MEDS ORDERED: diphenhydrAMINE 50 MG/ML VIAL ONE (10:22)
[2021-01-09] MEDS ORDERED: oxyCODONE /ACETAMINOPHEN 5-325MG TAB PO PRN (10:30)
[2021-01-09] MEDS ORDERED: diphenhydrAMINE 50 MG/ML VIAL IV SCH (11:00)
[2021-01-09 11:25] VITALS: BP 127/82
--- NOTE | 2021-01-09 12:18 | Post Anesthesia Evaluation ---
- Post Anesthesia Evaluation Patient Participated: Yes Airway Patent: Yes Stable Respiratory Function: Yes Nausea/Vomiting: No Temp > 96.8F: Yes Pain Manageable: Yes Adequeate Hydration: Yes Anesthesia Complications: No Block Receding Appropriately: Not Applicable Patient on Ventilator: No
== END 2021-01-09 11:10 | disposition home or self-care (01) ==
LOC: OR 05:47
PROVIDERS: ATTEND Obstetrics & Gynecology
DX: Z30.2 Encounter for sterilization (principal); I10 Essential (primary) hypertension; Z79.899 Other long term (current) drug therapy; Z98.890 Other specified postprocedural states; Z82.49 Family history of ischemic heart disease and other diseases of the circulatory system
CPT/HCPCS: 36415; 58600; 81025; 85027; 88302; J0690; J1100; J1170; J1200; J1885; J2250; J2405; J2704; J2710; J3010; J7120